=== PATIENT | female | born 1975 | race African-American/Black ===

== ENCOUNTER 2017-03-20 09:24 | Observation (INO) | payer MEDICAID, OTHER ==
[2017-03-20] VITALS (14 sets, daily range): BP systolic 99–141; BP diastolic 47–121; PULSE 54–71; RESP 14–18; TEMP 97.6–98.6; O2SAT 66–100
[~2017-03-20] VITALS: Ht 167.6 cm; Wt 90.0 kg
[~2017-03-20 09:24] MED LIST: CLIN150 PO; IBUP-1116 PO; LORTA5 PO; SULF1TAB47 PO
[2017-03-20] MEDS ORDERED: FERR325T8 PO (10:03)
[2017-03-20 10:18] LABS: AUTOMATED NEUTROPHIL # 2.2 TH/MM3 (1.8-7.7); BASOPHIL # 0.1 TH/MM3 (0-0.2); BASOPHIL % 1.5 % (0.0-2.0); EOSINOPHIL # 0.1 TH/MM3 (0-0.4); EOSINOPHIL % 1.9 % (0.0-4.0); LYMPH % 31.7 % (9.0-44.0); LYMPHOCYTE # 1.2 TH/MM3 (1.0-4.8); MEAN CELL VOLUME 56.5 FL (80.0-100.0); MONO % 8.8 % (0.0-8.0); NEUT % 56.1 % (16.0-70.0); PLATELET COUNT 250 TH/MM3 (150-450); RED BLOOD COUNT 4.07 MIL/MM3 (4.00-5.30); RED CELL DISTRIBUTION WIDTH 21.2 % (11.6-17.2); WHITE BLOOD COUNT 3.8 TH/MM3 (4.0-11.0)
[2017-03-20 10:22] LABS: MEAN CORPUSCULAR HGB CONC 28.3 % (32.0-36.0)
[2017-03-20 10:23] LABS: HEMO FLAGS AUTO DIFF
[2017-03-20] MEDS ORDERED: SODIUM CHLOR 0.9% 250 ML INJ 250 ML IV ONE (10:30)
--- NOTE | 2017-03-20 10:36 | PD ---
HPI Chief Complaint: Abnormal Results Time Seen by Provider: 09:39 Travel History International Travel<30 days: No Contact w/Intl Traveler<30days: No Traveled to known affect area: No History of Present Illness HPI This is a 42-year-old female with a history of dysfunctional uterine bleeding and anemia, who presents today with points of weakness, shortness of breath and headache. Patient states that she feels as though her blood level is low. She denies any chest pain, chest pressure. She does report multiple transfusions in the past. She states she was last transfused in November 2015. PFS Past Medical History Anemia: Yes (multiple transfusions after heavy menstration) Diminished Hearing: No Tetanus Vaccination: > 5 Years Influenza Vaccination: No ?: Not LMP: 03/09/17-03/14/17 : 3 Para: 3 Miscarriage: 0 : 0 Tubal Ligation: Yes Social History Alcohol Use: No Tobacco Use: No Substance Use: No Allergies-Medications (Allergen,Severity, Reaction): Coded Allergies: No Known Allergies (Unverified , 03/20/17) Reported Meds & Prescriptions Reported Meds & Active Scripts Active Reported Ferrous Sulfate 325 Mg (65 Mg Iron) Tablet 325 Mg PO BIDPC Review of Systems Except as stated in HPI: all other systems reviewed are Neg General / Constitutional: No: Fever, Chills HENT: Positive: Headaches, Lightheadedness Cardiovascular: No: Chest Pain or Discomfort, Palpitations, Irregular Rhythm Respiratory: Positive: Shortness of Breath, No: Cough Gastrointestinal: No: Nausea, Vomiting (on exertion), Abdominal Pain Genitourinary: Positive: Other (issue of heavy menstrual bleeding), No: Dysuria Musculoskeletal: Positive: Weakness (generalized), No: Pain Neurologic: Positive: Weakness (generalized), Dizziness, Headache (upon standing), No: Ataxia, Sensory Disturbance Physical Exam Narrative GENERAL: Well-nourished, well-developed patient. SKIN: Focused skin assessment warm/dry. HEAD: Normocephalic. EYES: No scleral icterus. No injection or drainage. Slight pale conjunctiva. NECK: Supple, trachea midline. No JVD or lymphadenopathy. CARDIOVASCULAR: Regular rate and rhythm without murmurs, gallops, or rubs. RESPIRATORY: Breath sounds equal bilaterally. No accessory muscle use. GASTROINTESTINAL: Abdomen soft, non-tender, nondistended. MUSCULOSKELETAL: No cyanosis, or edema. NEUROLOGICAL: Awake and alert. Cranial nerves II through XII intact. Motor grossly within normal limits. Five out of 5 muscle strength in all muscle groups. Normal speech. Data Data Last Documented VS Vital Signs Date Time Temp Pulse Resp B/P (MAP) Pulse Ox O2 Delivery O2 Flow Rate FiO2 03/20/17 09:27 97.7 57 17 132/89 (103) 100 Room Air Orders Orders Complete Blood Count With Diff (03/20/17 09:39) Comprehensive Metabolic Panel (03/20/17 09:39) Iv Access Insert/Monitor (03/20/17 09:39) Type And Screen (03/20/17 09:39) Red Blood Cells (Rbc) (03/20/17 10:28) Blood Product Administration (03/20/17 10:28) Sodium Chlor 0.9% 250 Ml Inj (Ns 250 Ml (03/20/17 10:30) Admit Order (Ed Use Only) (03/20/17 11:10) Labs Laboratory Tests Test 03/20/17 10:00 White Blood Count 3.8 TH/MM3 Red Blood Count 4.07 MIL/MM3 Hemoglobin 6.5 GM/DL Hematocrit 23.0 % Mean Corpuscular Volume 56.5 FL Mean Corpuscular Hemoglobin 16.0 PG Mean Corpuscular Hemoglobin Concent 28.3 % Red Cell Distribution Width 21.2 % Platelet Count 250 TH/MM3 Mean Platelet Volume 8.8 FL Neutrophils (%) (Auto) 56.1 % Lymphocytes (%) (Auto) 31.7 % Monocytes (%) (Auto) 8.8 % Eosinophils (%) (Auto) 1.9 % Basophils (%) (Auto) 1.5 % Neutrophils # (Auto) 2.2 TH/MM3 Lymphocytes # (Auto) 1.2 TH/MM3 Monocytes # (Auto) 0.3 TH/MM3 Eosinophils # (Auto) 0.1 TH/MM3 Basophils # (Auto) 0.1 TH/MM3 CBC Comment AUTO DIFF Blood Urea Nitrogen 11 MG/DL Creatinine 0.87 MG/DL Random Glucose 76 MG/DL Total Protein 7.7 GM/DL Albumin 3.8 GM/DL Calcium Level 9.0 MG/DL Alkaline Phosphatase 49 U/L Aspartate Amino Transf (AST/SGOT) 16 U/L Alanine Aminotransferase (ALT/SGPT) 13 U/L Total Bilirubin 0.6 MG/DL Sodium Level 137 MEQ/L Potassium Level 3.8 MEQ/L Chloride Level 105 MEQ/L Carbon Dioxide Level 24.3 MEQ/L Anion Gap 8 MEQ/L Estimat Glomerular Filtration Rate 87 ML/MIN MDM Medical Decision Making Medical Screen Exam Complete: Yes Emergency Medical Condition: Yes Differential Diagnosis Symptomatic anemia versus metabolic arrangement versus dehydration versus fatigue Narrative Course 42-year-old female presents with headache, dizziness, shortness of breath and weakness. Patient has a history of heavy periods and has had multiple visits and admissions for transfusions. The patient's hemoglobin is 6.5 here. She will be admitted for blood transfusion. She's been typed and crossed for 2 units. There is a call out to the hospitalist for admission. Believe she can be admitted under observation. Diagnosis Primary Impression: Symptomatic anemia Additional Impression: Severe dysmenorrhea Admitting Information Admitting Physician Requests: Observation Guero Riojas MD Mar 20, 2017 10:36
[2017-03-20 10:42] LABS: ANION GAP 8 MEQ/L (5-15); AST (GOT) 16 U/L (15-37); BICARBONATE 24.3 MEQ/L (21.0-32.0); BLOOD UREA NITROGEN 11 MG/DL (7-18); CHLORIDE 105 MEQ/L (98-107); GLOMERULAR FILTRATION RATE 87 ML/MIN (>89); POTASSIUM 3.8 MEQ/L (3.5-5.1); SODIUM (NA) 137 MEQ/L (136-145)
[2017-03-20 10:43] LABS: ALT (GPT) 13 U/L (10-53)
[2017-03-20 10:45] LABS: ALKALINE PHOSPHATASE 49 U/L (45-117); TOTAL BILIRUBIN ADULT 0.6 MG/DL (0.2-1.0)
[2017-03-20] MEDS ORDERED: NALOXONE HCL 0.4 MG/ML AMP IV PUSH PRN (11:15)
[2017-03-20] MEDS ORDERED: ACETAMINOPHEN 325 MG TAB PO PRN ×2 (11:15)
[2017-03-20] MEDS ORDERED: SODIUM CHLORIDE 0.9% FLUSH 10 ML FLUSH IV FLUSH PRN (11:15)
[2017-03-20 12:40] LABS: OVALOCYTES 1+ (NORMAL); SCAN/DIFF AUTO DIFF CONFIRMED
[2017-03-20] MEDS: SODIUM CHLOR 0.9% 1000 ML INJ 1,000 ML IV SCH ×2 (15:02→21:17)
--- NOTE | 2017-03-20 15:53 | HHI.HP ---
[facility] Rg Bapt[facility] M.D. Admission Diagnosis symptomatic anemia, dysmennorhea Diagnoses: Chief Complaint: Weakness Travel History International Travel<30 Days: No Contact w/Intl Traveler <30 Da: No Traveled to Known Affected Are: No History of Present Illness The patient is a 42-year-old female with a past medical history of heavy menstrual periods who is presenting to the hospital with weakness and dizziness. Patient states that she has had heavy periods since her first child at the age of 19. She says at first she would be transfused for heavy bleeding every couple of years but lately it's been about once a year. She says she generally gets 3 units transfused at a time. She says her cycle went from March through the . Over the past few days she has been experiencing significant dizziness and weakness. She says she almost passes out secondary to that dizziness and weakness. She has not actually passed out. She says she has been having difficulty eating. She says she eats ice all day long when her iron level is low. She says she does not follow-up with an OBGYN. She denies any shortness of breath. She says the last time she was transfused was December 04 of last year. Review of Systems Except as stated in HPI: all other systems reviewed are Neg Past Family Social History Past Medical History Heavy menstrual cycles Tubal ligation Allergies: Coded Allergies: No Known Allergies (Unverified , 03/20/17) Active Ordered Medications Current Medications Medications (Trade) Dose Ordered Sig/Katie Route Start Time Stop Time Status Last Admin Sodium Chloride 250 ml @ 15 mls/hr ONCE ONCE IV 03/20/17 10:30 03/21/17 03:09 03/20/17 11:28 (Ferrous Sulfate) 325 mg BIDPC PO 03/20/17 18:00 Sodium Chloride 1,000 ml @ 100 mls/hr Q10H IV 03/20/17 11:15 03/20/17 15:02 (NS Flush) 2 ml UNSCH PRN IV FLUSH 03/20/17 11:15 (NS Flush) 2 ml BID IV FLUSH 03/20/17 21:00 (Tylenol) 650 mg Q4H PRN PO 03/20/17 11:15 (Tylenol) 650 mg Q6H PRN PO 03/20/17 11:15 (Roxicodone) 10 mg Q4H PRN PO 03/20/17 11:15 (Roxicodone) 5 mg Q4H PRN PO 03/20/17 11:15 (Narcan Inj) 0.4 mg UNSCH PRN IV PUSH 03/20/17 11:15 (Estelita-Colace) 1 tab BID PO 03/20/17 21:00 Family History Throat cancer Cirrhosis of the liver Gout Diabetes Social History The patient quit smoking 6 months ago. She does not drink alcohol. She denies illicit substance use. Physical Exam Vital Signs Vital Signs Date Time Temp Pulse Resp B/P (MAP) Pulse Ox O2 Delivery O2 Flow Rate FiO2 03/20/17 15:38 71 16 122/86 100 03/20/17 15:13 98.6 63 16 99/121 66 03/20/17 14:07 98.0 60 16 124/59 (80) 100 03/20/17 13:11 98.5 58 16 128/59 100 03/20/17 12:46 98.6 57 16 118/62 100 03/20/17 12:22 03/20/17 12:15 57 16 132/82 99 03/20/17 11:45 98.2 60 14 141/72 100 03/20/17 11:26 98.2 57 16 126/74 100 03/20/17 11:20 98.2 58 16 126/74 (91) 100 Room Air 03/20/17 09:27 97.7 57 17 132/89 (103) 100 Room Air Physical Exam GENERAL: This is a well-nourished, well-developed patient, in no apparent distress. SKIN: No rashes, ecchymoses or lesions. Cool and dry. HEAD: Atraumatic. Normocephalic. No temporal or scalp tenderness. EYES: Pupils equal round and reactive. Extraocular motions intact. No scleral icterus. No injection or drainage. ENT: Nose without bleeding, purulent drainage or septal hematoma. Throat without erythema, tonsillar hypertrophy or exudate. Uvula midline. Airway patent. NECK: Trachea midline. No JVD or lymphadenopathy. Supple, nontender, no meningeal signs. CARDIOVASCULAR: Tachycardic without murmurs, gallops, or rubs. RESPIRATORY: Clear to auscultation. Breath sounds equal bilaterally. No wheezes , rales, or rhonchi. GASTROINTESTINAL: Abdomen soft, non-tender, nondistended. No hepato-splenomegaly , or palpable masses. No guarding. MUSCULOSKELETAL: Extremities without clubbing, cyanosis, or edema. No joint tenderness, effusion, or edema noted. No calf tenderness. Negative Homans sign bilaterally. NEUROLOGICAL: Awake and alert. Cranial nerves II through XII intact. Motor and sensory grossly within normal limits. Five out of 5 muscle strength in all muscle groups. Normal speech. PSYCH: Mood and affect appropriate. Laboratory Laboratory Tests Test 03/20/17 10:00 White Blood Count 3.8 Red Blood Count 4.07 Hemoglobin 6.5 Hematocrit 23.0 Mean Corpuscular Volume 56.5 Mean Corpuscular Hemoglobin 16.0 Mean Corpuscular Hemoglobin Concent 28.3 Red Cell Distribution Width 21.2 Platelet Count 250 Mean Platelet Volume 8.8 Neutrophils (%) (Auto) 56.1 Lymphocytes (%) (Auto) 31.7 Monocytes (%) (Auto) 8.8 Eosinophils (%) (Auto) 1.9 Basophils (%) (Auto) 1.5 Neutrophils # (Auto) 2.2 Lymphocytes # (Auto) 1.2 Monocytes # (Auto) 0.3 Eosinophils # (Auto) 0.1 Basophils # (Auto) 0.1 CBC Comment AUTO DIFF Differential Comment AUTO DIFF CONFIRMED Ovalocytes 1+ Blood Urea Nitrogen 11 Creatinine 0.87 Random Glucose 76 Total Protein 7.7 Albumin 3.8 Calcium Level 9.0 Alkaline Phosphatase 49 Aspartate Amino Transf (AST/SGOT) 16 Alanine Aminotransferase (ALT/SGPT) 13 Total Bilirubin 0.6 Sodium Level 137 Potassium Level 3.8 Chloride Level 105 Carbon Dioxide Level 24.3 Anion Gap 8 Estimat Glomerular Filtration Rate 87 Result Diagram: 03/20/17 1000 03/20/17 1000 Caprini VTE Risk Assessment Caprini VTE Risk Assessment: Mod/High Risk (score >= 2) Caprini Risk Assessment Model Point Value = 1 Point Value = 2 Point Value = 3 Point Value = 5 Age 41-60 Minor surgery BMI > 25 kg/m2 Swollen legs Varicose veins or History of unexplained or recurrent spontaneous Oral contraceptives or hormone replacement Sepsis (< 1 month) Serious lung disease, including pneumonia (< 1 month) Abnormal pulmonary function Acute myocardial infarction Congestive heart failure (< 1 month) History of inflammatory bowel disease Medical patient at bed rest Age 61-74 Arthroscopic surgery Major open surgery (> 45 min) Laparoscopic surgery (> 45 min) Malignancy Confined to bed (> 72 hours) Immobilizing plaster cast Central venous access Age >= 75 History of VTE Family history of VTE Factor V Leiden Prothrombin [id number] Lupus anticoagulant Anticardiolipin antibodies Elevated serum homocysteine Heparin-induced thrombocytopenia Other congenital or acquired thrombophilia Stroke (< 1 month) Elective arthroplasty Hip, pelvis, or leg fracture Acute spinal cord injury (< 1 month) Prophylaxis Regimen Total Risk Factor Score Risk Level Prophylaxis Regimen 0-1 Low Early ambulation 2 Moderate Order ONE of the following: *Sequential Compression Device (SCD) *Heparin 5000 units SQ BID 3-4 Higher Order ONE of the following medications: *Heparin 5000 units SQ TID *Enoxaparin/Lovenox 40 mg SQ daily (WT < 150 kg, CrCl > 30 mL/min) *Enoxaparin/Lovenox 30 mg SQ daily (WT < 150 kg, CrCl > 10-29 mL/min) *Enoxaparin/Lovenox 30 mg SQ BID (WT < 150 kg, CrCl > 30 mL/min) AND/OR *Sequential Compression Device (SCD) 5 or more Highest Order ONE of the following medications: *Heparin 5000 units SQ TID (Preferred with Epidurals) *Enoxaparin/Lovenox 40 mg SQ daily (WT < 150 kg, CrCl > 30 mL/min) *Enoxaparin/Lovenox 30 mg SQ daily (WT < 150 kg, CrCl > 10-29 mL/min) *Enoxaparin/Lovenox 30 mg SQ BID (WT < 150 kg, CrCl > 30 mL/min) AND *Sequential Compression Device (SCD) Assessment and Plan Assessment and Plan Severe anemia Secondary to heavy menstrual cycles. Chronic problem. Hemoglobin 6.5 on admission. Currently receiving 2 units of blood. The patient endorses weakness and dizziness associated with her anemia. - Follow CBC following blood transfusion and transfuse additionally as needed. - Follow up with [facility]. Consult placed. - Continue iron supplementation. - Continue IV fluids. Leukopenia Appears chronic. - Follow CBC. PPx: Chemical prophylaxis currently contraindicated secondary to anemia Code Status Full Discussed Condition With Patient, Cristo Steel DO Mar 20, 2017 15:53
--- NOTE | 2017-03-20 17:21 | PD.CONS ---
History & Physical H&P [facility] Attending Note The patient is a 42-year-old para 3003 who presented to the ED with menorrhagia and symptomatic anemia. It appears she has bounced around from position to physician and ER to ER without obtaining appropriate REGIONAL SALES REPRESENTATIVE follow-up as has been recommended. She reports that she is received 5 blood transfusions for anemia related to her heavy periods. She states that she is not bleeding at this time by her last period was March 09 through 03/14/17. She states that she does not have fibroids. She states that she saw a association executive in the past but did not follow up with him again and does not recall his name. It seems that her most recent follow-up of her abnormal bleeding has been through her primary care physician. Please see the resident documentation for full details of the complete gynecologic consultation. On physical examination a speculum exam and bimanual exam were performed by me. Both were without significant finding. Speculum examination reveals grossly normal-appearing vagina and cervix with grossly normal rugae and physiologic discharge. No cervical or vaginal masses were noted. Bimanual examination confirmed. The patient declined rectovaginal exam. We discussed at length the causes to menorrhagia as well as the appropriate evaluation which would include an outpatient Pap test, and outpatient endometrial biopsy to his further assess the endometrial lining for abnormalities. We discussed laboratory evaluation to evaluate her thyroid which we will do at this time. We discussed ultrasonography to evaluate for anatomic abnormalities which may include fibroids. Although the patient states she does not have fibroids we do not have any recent imaging at this site. We discussed the appropriate evaluation that needs to be completed as an outpatient. I discussed at length the numerous treatment options for menorrhagia which may include hormonal and nonhormonal methods. I discussed with the patient again at length that these need to be performed on an outpatient manner so she has appropriate follow-up for any potential complications or concerns. We also discussed surgical interventions; again however we discussed that the appropriate outpatient evaluation would need to be performed and at this time there is no indication for an urgent surgical procedure. In the meantime I discussed the use of Lysteda 650 mg 2 by mouth every 8 hours for 5 days of her menses as an intermediate option while she is arranging for appropriate follow-up and evaluation. We discussed that some studies indicate there may be a slightly increased risk of PE or DVT with this treatment however larger studies have not indicated that this is the case and in fact large population studies in [facility] indicate that the cysts not the case and is even used in conjunction with OCPs. She reports that she has shared cost and it has been challenging for her to get follow-up. We will request a social work consult while she is here to assist with financial matters and perhaps availability of obtaining medication outpatient follow-up. In the meantime, she was given a coupon for Lysteda through [facility] as well as a 1 month refill. All of her questions were answered and we will continue to follow her with you. She will be referred to Dr. Terrell for outpatient follow- up who is our REGIONAL SALES REPRESENTATIVE backup at this time Kalani Brito MD Mar 20, 2017 17:21
--- NOTE | 2017-03-20 18:16 | RADRPT ---
EXAM DATE/TIME: 03/20/2017 17:35 [facility] COMPARISON: No previous studies available for comparison. INDICATIONS : Bleeding. MEDICAL HISTORY : Vaginal bleeding. Anemia. SURGICAL HISTORY : Tubal ligation. Blood transfusions. ENCOUNTER: Initial ACUITY: > 1 year PAIN SCORE: 0/10 LOCATION: Bilateral pelvis MEASUREMENTS: UTERUS: 9.2 x 7.1 x 5.7 cm ENDOMETRIAL STRIPE: 4 mm RIGHT OVARY: Non visualized LEFT OVARY: 2.7 x 2.3 x 1.7 cm FINDINGS: Right ovary not visualized. Left ovary unremarkable except for small follicular cysts. Uterus is mildly enlarged with numerous fibroids, largest measuring up to 3.1 cm in the body of the u terus and 3 cm in the lower uterine segment. No free fluid. CONCLUSION: 1. Numerous uterine fibroids measuring up to around 3 cm in diameter. 2. Small follicular cyst left ovary. Right ovary not visualized. John Lorenzo MD on March 20, 2017 at 18:12 Board Certified Radiologist. This report was verified electronically.
--- NOTE | 2017-03-20 18:24 | HHI.HP ---
HPI Chief Complaint Vaginal bleeding Travel History International Travel<30 Days: No Contact w/Intl Traveler<30Days: No Known Affected Area: No History of Present Illness HPI S: Patient is a 42-year-old who presents with lightheadedness secondary to anemia. Patient was referred by her primary care doctor after she complained to him that she passed out twice at work. Has had associated lightheadedness, palpitations, and shortness of breath. Found to be anemic with a hemoglobin of 6.5 in the ED. Received RBC transfusions 2. States that she has a significant workup history for her vaginal bleeding from her "Dr." (Unsure of what specialty) and from several hospital visits. Every time, she says that she requires transfusions. Reports that no one has been able to figure out the source of her bleeding and has not received any treatment. Has had at least 5 recent hospitalizations in the past associated with transfusions. Reports that she is certain that she does not have fibroids. She has had progressively heavy vaginal bleeding with each menses since age 26, after her last . States that she has regular periods each month, with bleeding lasting from 6 days to 2 weeks. Her last period lasted from March 09- This menses was particularly heavy; she noted quarter size clots. Had to use 3 bags of pads and have box of tampons. States that she had to stack pads on top of each other to sufficiently prevent leaks. Endorses midline pelvic cramping associated with the first couple days of her menses. Denies dyspareunia , easy bleeding or bruising, thyroid disease, history of liver disease or clotting disorders, or current vaginal bleeding. No history of abnormal Pap smears. Per patient last ultrasound was done in 2016 at [facility], no abnormalities were found. Patient is very frustrated with constant hospital visits for anemia and wants treatment that will stop her vaginal bleeding, though it is uncertain if she is regularly following up with the proper outpatient provider. History Past Medical History Narrative Medical Anemia - iron supplements Obstetric History Obstetric History Vaginal deliveries 3 with no associated complications. No miscarriages or abortions. Past Surgical History Narrative Surgical Bilateral tubal ligation - 2000 Family History Family History: Negative Social History Alcohol Use: No Tobacco Use: No Substance Abuse: No Allergies-Medications (Allergen,Severity, Reaction): Coded Allergies: No Known Allergies (Unverified , 03/20/17) Home Meds Reported Medications Ferrous Sulfate (Ferrous Sulfate) 325 Mg (65 Mg Iron) Tablet, 325 MG PO BIDPC for Nutritional Supplement, TAB 0 Refills 03/20/17 Review of Systems Except as stated in HPI: all other systems reviewed are Neg Gastrointestinal: No: Hematemesis, Hematochezia, Constipation Genitourinary: Menorrhagia, No: Dyspareunia, Discharge Physical Exam Vital Signs Date Time Temp Pulse Resp B/P (MAP) Pulse Ox O2 Delivery O2 Flow Rate FiO2 03/20/17 17:02 98.2 54 16 137/47 100 03/20/17 15:55 98.6 54 18 122/63 100 03/20/17 15:38 71 16 122/86 100 03/20/17 15:13 98.6 63 16 99/121 66 03/20/17 14:07 98.0 60 16 124/59 (80) 100 03/20/17 13:11 98.5 58 16 128/59 100 03/20/17 12:46 98.6 57 16 118/62 100 03/20/17 12:22 03/20/17 12:15 57 16 132/82 99 03/20/17 11:45 98.2 60 14 141/72 100 03/20/17 11:26 98.2 57 16 126/74 100 03/20/17 11:20 98.2 58 16 126/74 (91) 100 Room Air 03/20/17 09:27 97.7 57 17 132/89 (103) 100 Room Air Narrative GENERAL: Well-nourished, well-developed patient. CARDIOVASCULAR: Regular rate and rhythm without murmurs, gallops, or rubs. RESPIRATORY: Breath sounds equal bilaterally. No accessory muscle use. ABDOMEN/GI: Abdomen soft, non-tender, bowel sounds present, no rebound, no guarding Pelvic Exam: Normal-appearing cervix with no vaginal bleeding observed. No discharge or blood in the vaginal vault. No external genital lesions. No other abnormalities noted. EXTREMITIES: No ecchymoses noted on extremities Caprini VTE Risk Assessment Caprini VTE Risk Assessment: Mod/High Risk (score >= 2) Caprini Risk Assessment Model Point Value = 1 Point Value = 2 Point Value = 3 Point Value = 5 Age 41-60 Minor surgery BMI > 25 kg/m2 Swollen legs Varicose veins or History of unexplained or recurrent spontaneous Oral contraceptives or hormone replacement Sepsis (< 1 month) Serious lung disease, including pneumonia (< 1 month) Abnormal pulmonary function Acute myocardial infarction Congestive heart failure (< 1 month) History of inflammatory bowel disease Medical patient at bed rest Age 61-74 Arthroscopic surgery Major open surgery (> 45 min) Laparoscopic surgery (> 45 min) Malignancy Confined to bed (> 72 hours) Immobilizing plaster cast Central venous access Age >= 75 History of VTE Family history of VTE Factor V Leiden Prothrombin [id number] Lupus anticoagulant Anticardiolipin antibodies Elevated serum homocysteine Heparin-induced thrombocytopenia Other congenital or acquired thrombophilia Stroke (< 1 month) Elective arthroplasty Hip, pelvis, or leg fracture Acute spinal cord injury (< 1 month) Prophylaxis Regimen Total Risk Factor Score Risk Level Prophylaxis Regimen 0-1 Low Early ambulation 2 Moderate Order ONE of the following: *Sequential Compression Device (SCD) *Heparin 5000 units SQ BID 3-4 Higher Order ONE of the following medications: *Heparin 5000 units SQ TID *Enoxaparin/Lovenox 40 mg SQ daily (WT < 150 kg, CrCl > 30 mL/min) *Enoxaparin/Lovenox 30 mg SQ daily (WT < 150 kg, CrCl > 10-29 mL/min) *Enoxaparin/Lovenox 30 mg SQ BID (WT < 150 kg, CrCl > 30 mL/min) AND/OR *Sequential Compression Device (SCD) 5 or more Highest Order ONE of the following medications: *Heparin 5000 units SQ TID (Preferred with Epidurals) *Enoxaparin/Lovenox 40 mg SQ daily (WT < 150 kg, CrCl > 30 mL/min) *Enoxaparin/Lovenox 30 mg SQ daily (WT < 150 kg, CrCl > 10-29 mL/min) *Enoxaparin/Lovenox 30 mg SQ BID (WT < 150 kg, CrCl > 30 mL/min) AND *Sequential Compression Device (SCD) Data Data Orders Orders Complete Blood Count With Diff (03/20/17 09:39) Comprehensive Metabolic Panel (03/20/17 09:39) Iv Access Insert/Monitor (03/20/17 09:39) Type And Screen (03/20/17 09:39) Red Blood Cells (Rbc) (03/20/17 10:28) Blood Product Administration (03/20/17 10:28) Sodium Chlor 0.9% 250 Ml Inj (Ns 250 Ml (03/20/17 10:30) Admit Order (Ed Use Only) (03/20/17 11:10) Consult Gynecology (03/20/17 ) Ferrous Sulfate (Ferrous Sulfate) (03/20/17 18:00) Place In Observation (03/20/17 ) Vital Signs (Adult) Q4H (03/20/17 11:15) Activity Oob With Assistance (03/20/17 11:15) Stable Manager / Telemetry .CONTINUOUS (03/20/17 11:15) Intake + Output AVIVA.QSHIFT (03/20/17 11:15) Diet Regular Basic (03/20/17 Lunch) Sodium Chlor 0.9% 1000 Ml Inj (Ns 1000 M (03/20/17 11:15) Sodium Chloride 0.9% Flush (Ns Flush) (03/20/17 11:15) Sodium Chloride 0.9% Flush (Ns Flush) (03/20/17 21:00) Acetaminophen (Tylenol) (03/20/17 11:15) Complete Blood Count With Diff (03/21/17 06:00) Resp Oxygen Jose C Titrat 1-4 L (03/20/17 ) Scd Bilateral/Knee High AVIVA.BID (03/20/17 11:15) Diaz Bilateral/Knee High AVIVA.QSHIFT (03/20/17 11:15) Acetaminophen (Tylenol) (03/20/17 11:15) Oxycodone (Roxicodone) (03/20/17 11:15) Oxycodone (Roxicodone) (03/20/17 11:15) Naloxone Inj (Narcan Inj) (03/20/17 11:15) Docusate Sodium-Senna (Estelita-Colace) (03/20/17 21:00) Cbc No Diff, Includes Plts (03/20/17 11:15) (Hub Use Only)Inp Phy Cons/Ref (03/20/17 ) Case Management Consult (03/20/17 ) Physician Name Changes (03/20/17 ) Us Pelvis Comp W Transvaginal (03/20/17 ) Free Thyroxine (T4) (03/20/17 17:25) Thyroid Stimulating Hormone (03/20/17 17:25) Labs Laboratory Tests Test 03/20/17 10:00 White Blood Count 3.8 Red Blood Count 4.07 Hemoglobin 6.5 Hematocrit 23.0 Mean Corpuscular Volume 56.5 Mean Corpuscular Hemoglobin 16.0 Mean Corpuscular Hemoglobin Concent 28.3 Red Cell Distribution Width 21.2 Platelet Count 250 Mean Platelet Volume 8.8 Neutrophils (%) (Auto) 56.1 Lymphocytes (%) (Auto) 31.7 Monocytes (%) (Auto) 8.8 Eosinophils (%) (Auto) 1.9 Basophils (%) (Auto) 1.5 Neutrophils # (Auto) 2.2 Lymphocytes # (Auto) 1.2 Monocytes # (Auto) 0.3 Eosinophils # (Auto) 0.1 Basophils # (Auto) 0.1 CBC Comment AUTO DIFF Differential Comment AUTO DIFF CONFIRMED Ovalocytes 1+ Blood Urea Nitrogen 11 Creatinine 0.87 Random Glucose 76 Total Protein 7.7 Albumin 3.8 Calcium Level 9.0 Alkaline Phosphatase 49 Aspartate Amino Transf (AST/SGOT) 16 Alanine Aminotransferase (ALT/SGPT) 13 Total Bilirubin 0.6 Sodium Level 137 Potassium Level 3.8 Chloride Level 105 Carbon Dioxide Level 24.3 Anion Gap 8 Estimat Glomerular Filtration Rate 87 Assessment/Plan Problem List: (1) Symptomatic anemia ICD Codes: D64.9 - Anemia, unspecified Status: Acute (2) Severe dysmenorrhea ICD Codes: N94.6 - Dysmenorrhea, unspecified Status: Acute Assessment and Plan Patient is a who is admitted for symptomatic anemia and transfusions 2 secondary to dysmenorrhea. Complains of cyclic cramping with midline pain associated with periods, onset occurred after age 26, no dyspareunia. LFTs and PT/PTT within normal limits, symptoms likely not associated with clotting disorder. No abnormal findings on pelvic exam. Symptoms raise suspicion of primary dysmenorrhea. Patient with questionable history of follow-up outpatient care, possibly due to insurance reasons. She has had several hospital visits for transfusions. We explained to her the importance of outpatient continued care. Based on discussion, she agreed to follow-up with a boilermaking supervisor based on our referral. We will also prescribe her Lysteda for her to take at the time of her next menses. In addition, we will: - consult case management to help coordinate outpatient care and affordability of her medication - order transvaginal ultrasound and a TSH,T4 SWDW Spring Baxter MD R1 Mar 20, 2017 18:24
[2017-03-20] MEDS: FERROUS SULFATE 325 MG (65 MG ELEMENTAL IRON) TAB PO SCH (18:41)
[2017-03-20] MEDS: SODIUM CHLORIDE 0.9% FLUSH 10 ML FLUSH IV FLUSH SCH (21:00)
[2017-03-20] MEDS: DOCUSATE SODIUM 50 MG/SENNA 8.6 MG TAB PO SCH (21:00)
[2017-03-20 21:06] LABS: FREE T4 1.19 NG/DL (0.76-1.46)
[2017-03-20 21:46] LABS: HEMATOCRIT 27.9 % (35.0-46.0); MEAN CELL VOLUME 61.1 FL (80.0-100.0); MEAN CORPUSCULAR HEMOGLOBIN 17.9 PG (27.0-34.0); PLATELET COUNT 239 TH/MM3 (150-450); RED BLOOD COUNT 4.57 MIL/MM3 (4.00-5.30); RED CELL DISTRIBUTION WIDTH 25.8 % (11.6-17.2); WHITE BLOOD COUNT 4.3 TH/MM3 (4.0-11.0)
[2017-03-20 21:55] LABS: MEAN CORPUSCULAR HGB CONC 29.2 % (32.0-36.0); REVIEW FLAG FINAL
[2017-03-21 00:21] VITALS: BP 102/50; PULSE 63; RESP 18; TEMP 97.9; O2SAT 100
[2017-03-21 03:07] VITALS: BP 109/53; PULSE 54; RESP 18; TEMP 98; O2SAT 97
[2017-03-21 04:00] VITALS: PULSE 51
[2017-03-21] MEDS: SODIUM CHLOR 0.9% 1000 ML INJ 1,000 ML IV SCH (07:15)
[2017-03-21 07:24] LABS: AUTOMATED NEUTROPHIL # 2.3 TH/MM3 (1.8-7.7); BASOPHIL # 0.1 TH/MM3 (0-0.2); BASOPHIL % 1.4 % (0.0-2.0); EOSINOPHIL # 0.1 TH/MM3 (0-0.4); EOSINOPHIL % 3.5 % (0.0-4.0); HEMATOCRIT 27.6 % (35.0-46.0); LYMPH % 26.6 % (9.0-44.0); MEAN CELL VOLUME 60.9 FL (80.0-100.0); MEAN CORPUSCULAR HEMOGLOBIN 18.2 PG (27.0-34.0); MONO % 9.8 % (0.0-8.0); NEUT % 58.7 % (16.0-70.0); PLATELET COUNT 233 TH/MM3 (150-450); RED BLOOD COUNT 4.53 MIL/MM3 (4.00-5.30); RED CELL DISTRIBUTION WIDTH 25.8 % (11.6-17.2); WHITE BLOOD COUNT 3.8 TH/MM3 (4.0-11.0)
[2017-03-21 07:33] LABS: HEMO FLAGS AUTO DIFF; MEAN CORPUSCULAR HGB CONC 29.9 % (32.0-36.0)
[2017-03-21 07:38] VITALS: BP 124/58; PULSE 51; RESP 17; TEMP 98; O2SAT 100
--- NOTE | 2017-03-21 08:11 | HHI.PR ---
Subjective Remarks Follow-up for symptomatic anemia and uterine fibroids. Patient reports only active bleeding during her menses which was last week. Currently she's feeling much improved after transfusion. She feels less weak and has been ambulating. She denies any lightheadedness, dizziness, chest pain, shortness of breath. She verbalizes understanding of the need for outpatient follow-up. Objective Vitals Vital Signs Date Time Temp Pulse Resp B/P (MAP) Pulse Ox O2 Delivery O2 Flow Rate FiO2 03/21/17 07:38 98.0 51 17 124/58 (80) 100 03/21/17 04:00 51 03/21/17 03:07 98.0 54 18 109/53 (71) 97 03/21/17 00:21 97.9 63 18 102/50 (67) 100 03/20/17 19:29 97.9 68 17 123/74 (90) 100 03/20/17 18:04 97.6 54 16 135/63 100 03/20/17 17:02 98.2 54 16 137/47 100 03/20/17 15:55 98.6 54 18 122/63 100 03/20/17 15:38 71 16 122/86 100 03/20/17 15:13 98.6 63 16 99/121 66 03/20/17 14:07 98.0 60 16 124/59 (80) 100 03/20/17 13:11 98.5 58 16 128/59 100 03/20/17 12:46 98.6 57 16 118/62 100 03/20/17 12:22 03/20/17 12:15 57 16 132/82 99 03/20/17 11:45 98.2 60 14 141/72 100 03/20/17 11:26 98.2 57 16 126/74 100 03/20/17 11:20 98.2 58 16 126/74 (91) 100 Room Air 03/20/17 09:27 97.7 57 17 132/89 (103) 100 Room Air I/O 03/20/17 03/20/17 03/20/17 03/21/17 03/21/17 03/21/17 07:00 15:00 23:00 07:00 15:00 23:00 Intake Total 1470 ml 515 ml Balance 1470 ml 515 ml Intake IV Total 250 ml Packed Cells 1200 ml 400 ml Blood Product IV Normal Saline Flush 20 ml 115 ml # Voids 1 Result Diagram: 03/21/17 0623 03/20/17 1000 Imaging Last Impressions Pelvis Ultrasound 03/20/17 0000 Signed Impressions: Service Date/Time: March 17:35 - CONCLUSION: 1. Numerous uterine fibroids measuring up to around 3 cm in diameter. 2. Small follicular cyst left ovary. Right ovary not visualized. John Lorenzo MD Objective Remarks GENERAL: Well-developed well-nourished. In no acute distress. SKIN: Warm and dry. No lesions noted. HEENT: Normocephalic. Pupils equal and round. Mucous membranes pink and moist. CARDIOVASCULAR: Regular rate and rhythm. No murmur appreciated. RESPIRATORY: No accessory muscle use. Clear to auscultation. Breath sounds equal bilaterally. GASTROINTESTINAL: Abdomen soft, non-tender, nondistended. Bowel sounds x4. MUSCULOSKELETAL: No obvious deformities. No clubbing or cyanosis. No edema. NEUROLOGICAL: Awake and alert. No focal neurological deficits. Moves upper and lower extremities spontaneously. Normal speech. PSYCHIATRIC: Appropriate mood and affect; insight and judgment normal. A/P Assessment and Plan Severe anemia Secondary to heavy menstrual cycles. Chronic problem. Hemoglobin 6.5 on admission. Status post transfusion 2 units PRBCs. Reported weakness and dizziness associated with anemia, has improved posttransfusion. No active bleeding. - Repeat CBC shows hemoglobin improved and stable at 8.2 - SALES ORDER SPECIALIST consulted, appreciate input, emphasized the need for outpatient follow- up and provided the patient a prescription for Lysteda for further bleeding episodes in the meantime. - SALES ORDER SPECIALIST also ordered a transvaginal ultrasound which showed numerous fibroids, will follow up regarding recommendations - Continue iron supplementation. Mild Leukopenia: Appears chronic on review of previous labs. - Follow CBC. PPx: Chemical prophylaxis currently contraindicated secondary to anemia Discharge Planning Likely discharged today with prescription for Lysteda for outpatient SALES ORDER SPECIALIST follow-up if patient is cleared by SALES ORDER SPECIALIST. Addendum 9:45: Discussed with SALES ORDER SPECIALIST who evaluated the patient today, patient cleared for discharge. Kj Hewitt Mar 21, 2017 08:11
[2017-03-21 08:16] VITALS: O2SAT 96
[2017-03-21 08:29] LABS: SCAN/DIFF AUTO DIFF CONFIRMED
[2017-03-21 08:31] LABS: OVALOCYTES 1+ (NORMAL)
[2017-03-21] MEDS: DOCUSATE SODIUM 50 MG/SENNA 8.6 MG TAB PO SCH (09:00)
[2017-03-21] MEDS: SODIUM CHLORIDE 0.9% FLUSH 10 ML FLUSH IV FLUSH SCH (09:01)
[2017-03-21] MEDS: FERROUS SULFATE 325 MG (65 MG ELEMENTAL IRON) TAB PO SCH (09:01)
--- NOTE | 2017-03-21 09:57 | HHI.PR ---
Subjective Remarks Patient is doing well today. No complaints. Objective Vital Signs Date Time Temp Pulse Resp B/P (MAP) Pulse Ox O2 Delivery O2 Flow Rate FiO2 03/21/17 08:16 96 21 03/21/17 07:38 98.0 51 17 124/58 (80) 100 03/21/17 04:00 51 03/21/17 03:07 98.0 54 18 109/53 (71) 97 03/21/17 00:21 97.9 63 18 102/50 (67) 100 03/20/17 19:29 97.9 68 17 123/74 (90) 100 03/20/17 18:04 97.6 54 16 135/63 100 03/20/17 17:02 98.2 54 16 137/47 100 03/20/17 15:55 98.6 54 18 122/63 100 03/20/17 15:38 71 16 122/86 100 03/20/17 15:13 98.6 63 16 99/121 66 03/20/17 14:07 98.0 60 16 124/59 (80) 100 03/20/17 13:11 98.5 58 16 128/59 100 03/20/17 12:46 98.6 57 16 118/62 100 03/20/17 12:22 03/20/17 12:15 57 16 132/82 99 03/20/17 11:45 98.2 60 14 141/72 100 03/20/17 11:26 98.2 57 16 126/74 100 03/20/17 11:20 98.2 58 16 126/74 (91) 100 Room Air I/O 03/20/17 03/20/17 03/20/17 03/21/17 03/21/17 03/21/17 07:00 15:00 23:00 07:00 15:00 23:00 Intake Total 1470 ml 515 ml Balance 1470 ml 515 ml Intake IV Total 250 ml Packed Cells 1200 ml 400 ml Blood Product IV Normal Saline Flush 20 ml 115 ml # Voids 1 Result Diagram: 03/21/17 0623 03/20/17 1000 Objective Remarks Regular respiratory rate and rhythm, no distress. Abdomen is soft, non tender, non distended. Assessment and Plan Assessment and Plan Patient is a 42-year-old admitted for symptomatic anemia secondary to vaginal bleeding. Vaginal U/S shows numerous 3 cm fibroids. //Fibroids - associated heavy menstrual related bleeding and cramping - patient will need to f/u with outpatient provider enrollment specialist Dr. Alexander, will provide patient with local contact information and referral - coupon for Lysteda on D/C to start at next menses //Anemia - see above -con't iron supplements as needed SDW Dr. Brito Discharge Planning D/C today Spring Vazquez MD R1 Mar 21, 2017 09:57
== END 2017-03-21 10:47 | disposition home or self-care (01) ==
LOC: NEPE 09:24 → NEDA 11:12 → NEPHCDU 12:54
PROVIDERS: ADMIT Internal Medicine; ATTEND Internal Medicine
DX: D50.0 Iron deficiency anemia secondary to blood loss (chronic) (principal); N94.6 Dysmenorrhea, unspecified; D72.819 Decreased white blood cell count, unspecified; R06.02 Shortness of breath; D25.9 Leiomyoma of uterus, unspecified; Z87.891 Personal history of nicotine dependence
CPT/HCPCS: 36430; 76830; 76856; 80053; 84439; 84443; 85025; 85027; 86850; 86900; 86901; 86920; 96360; 96361; 99285; G0378; J7030; J7050; P9016